=== PATIENT | male | born 1970 | race Caucasian/White ===

== ENCOUNTER 2019-04-11 07:17 | Emergency (ER) | payer MEDICAID, OTHER ==
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
== END 2019-04-11 09:00 | disposition home or self-care (01) ==
LOC: VM.ED 07:17
DX: S00.33XA Contusion of nose, initial encounter (principal); S10.91XA Abrasion of unspecified part of neck, initial encounter; S20.319A Abrasion of unspecified front wall of thorax, initial encounter; Z79.899 Other long term (current) drug therapy; V47.9XXA Unspecified car occupant injured in collision with fixed or stationary object in traffic accident, initial encounter
CPT/HCPCS: 70450; 72125; 99284-25